=== PATIENT | male | born 1980 | race Hispanic/Latino ===

== ENCOUNTER 2020-04-27 10:28 | Observation (INO) | payer OTHER ==
[2020-04-27] MEDS ORDERED: ASPIRIN 325 MG TAB PO ONE (10:43)
--- NOTE | 2020-04-27 11:31 | XRay Report ---
CHEST 2 VIEWS INDICATION / CLINICAL INFORMATION: Chest Pain. COMPARISON: None available. FINDINGS: SUPPORT DEVICES: None. HEART / MEDIASTINUM: No significant abnormality. LUNGS / PLEURA: No significant pulmonary or pleural abnormality. No pneumothorax. ADDITIONAL FINDINGS: No significant additional findings. IMPRESSION: 1. No acute findings. Signer Name: Julius Mcnamara MD Signed: 04/27/2020 11:27 AM Workstation Name: [id number]
[2020-04-27] MEDS ORDERED: IPRATROPIUM/ALBUTEROL SULFATE 3 ML AMPUL.NEB IH ONE (11:49)
[2020-04-27 11:58] LABS: Basophils % (Auto) 0.3 % (0.0-1.8); Eosinophils # (Auto) 0.1 K/mm3 (0.0-0.4); Eosinophils % (Auto) 1.9 % (0.0-4.3); Hematocrit 38.1 % (35.5-45.6); Lymphocytes % (Auto) 20.2 % (13.4-35.0); Mean Corpuscular HGB Conc 34 % (32-34); Mean Corpuscular Volume 97 fl (84-94); Monocytes # (Auto) 0.4 K/mm3 (0.0-0.8); Platelet Count 145 K/mm3 (140-440); Red Blood Count 3.93 M/mm3 (3.65-5.03); Red Cell Distribution Width 14.1 % (13.2-15.2)
[2020-04-27 12:25] LABS: Creatine Kinase MB 3.4 ng/mL (0.0-4.0)
[2020-04-27 12:26] LABS: Alanine Aminotransferase 107 units/L (7-56); Albumin 3.8 g/dL (3.9-5); Blood Urea Nitrogen 7 mg/dL (9-20); Calcium 8.6 mg/dL (8.4-10.2); Hemolysis Index 10
[2020-04-27 12:28] LABS: BUN/Creatinine Ratio 10; Bilirubin,Direct < 0.2 mg/dL (0-0.2)
[2020-04-27 12:33] LABS: INR TNR (0.87-1.13); Partial Thromboplastin Time TNR Sec. (24.2-36.6)
[2020-04-27] MEDS ORDERED: ASPIRIN 325 MG TAB ONE (13:12)
[2020-04-27 13:53] LABS: INR 0.95 (0.87-1.13)
[2020-04-27 13:54] LABS: Partial Thromboplastin Time 27.7 Sec. (24.2-36.6)
--- NOTE | 2020-04-27 14:51 | Cat Scan Report ---
CT angio chest INDICATION / CLINICAL INFORMATION: chest pain elevated dimer. TECHNIQUE: Axial CT images were obtained after injection of 100 cc of Omnipaque 350 IV contrast using CTA protoc ol. 3 plane MIP / 3D reconstructions were produced. All CT scans at this location are performed using CT dose reduction for ALARA by means of automated exposure control. COMPARISON: None available. FINDINGS: Following the injection of intravenous contrast, a suboptimal bolus was obtained. No definite filling defects are seen in the main pulmonary arteries or their larger branches. No significant parenchymal abnormality is seen in the lungs. No enlarged mediastinal or hilar lymph nodes are identified. Diffu se fatty infiltration is present in the visualized portions of the liver. Degenerative changes seen i n the thoracic spine. IMPRESSION: 1. Suboptimal bolus without definite evidence of pulmonary embolus 2. Diffuse fatty infiltration in the visualized portions of the liver Signer Name: Lowell Puckett MD FACR Signed: 04/27/2020 2:46 PM Workstation Name: [id number]
--- NOTE | 2020-04-27 16:26 | Emergency Department Report ---
ED Chest Pain HPI - General Chief Complaint: Chest Pain Stated Complaint: SOB, CHEST PAIN Time Seen by Provider: 04/27/20 11:40 Source: patient Mode of arrival: Ambulatory Limitations: No Limitations - History of Present Illness Initial Comments: This is a 40-year-old male that complains of substernal chest pain which he states radiates to his back. He states he has had a dry cough for the past 1 week. He states that he went to his primary care doctor in [place] and was told that he was negative for Covid last . He complains of a dry cough. He admits that he smokes. He is using a Primatene inhaler. He has been wheezing. He denies fever and chills. He states he has had a slight alteration in sense of taste. He complains of myalgias of his upper body. MD Complaint: chest pain -: Gradual, week(s) Onset: during rest Pain Location: substernal Pain Radiation: back Severity: moderate Quality: sharp Consistency: intermittent Improves With: nothing Worsens With: nothing re: denies: nausea, vomting, diaphoresis, dyspnea Other Symptoms: cough. denies: fever, syncope Treatments Prior to Arrival: none - Related Data Home Medications Medication Instructions Recorded Confirmed Last Taken Omeprazole Magnesium [Prilosec Otc] 20 mg PO QDAY 08/13/13 07/07/14 07/07/14 lisinopriL [Zestril TAB] 20 mg PO QDAY 08/13/13 07/07/14 07/07/14 carvediloL [Coreg] 25 mg PO BID 07/07/14 07/07/14 07/07/14 Previous Rx's Medication Instructions Recorded Last Taken Type HYDROcodone/APAP 10-325 [[place] 1 each PO Q6HR PRN #15 tablet 10/13/13 Unknown Rx 10/325] Naproxen Sodium [Aleve] 220 mg PO Q8H PRN #50 tablet 12/19/13 Unknown Rx oxyCODONE /ACETAMINOPHEN [Percocet 1 tab PO Q6HR PRN #10 tablet 12/19/13 Unknown Rx 5/325 mg] traMADoL [Ultram 50 MG tab] 50 mg PO Q6HR PRN #20 tablet 07/07/14 Unknown Rx Allergies Allergy/AdvReac Type Severity Reaction Status Date / Time No Known Allergies Allergy Verified 10/13/13 13:16 Heart Score - HEART Score History: Moderately suspicious EKG: Non-specific Age: < 45 Risk factors: 1-2 risk factors Troponin: < normal limit HEART Score: 3 - Critical Actions Critical Actions: 0-3 pts:0.9-1.7%risk of adverse cardiac event.Candidate for discharge ED Review of Systems ROS: Stated complaint: SOB, CHEST PAIN Other details as noted in HPI Constitutional: denies: chills, fever Eyes: denies: eye pain, eye discharge, vision change ENT: denies: ear pain, throat pain Respiratory: cough. denies: shortness of breath, wheezing Cardiovascular: chest pain. denies: palpitations Endocrine: no symptoms reported Gastrointestinal: denies: abdominal pain, nausea, diarrhea Genitourinary: denies: urgency, dysuria Musculoskeletal: denies: back pain, joint swelling, arthralgia Skin: denies: rash, lesions Neurological: denies: headache, weakness, paresthesias Psychiatric: denies: anxiety, depression Hematological/Lymphatic: denies: easy bleeding, easy bruising ED Past Medical Hx - Past Medical History Hx Hypertension: Yes Hx Diabetes: Yes (borderline) Additional medical history: cardiac cath several years ago - Surgical History Additional Surgical History: Left inquinal hernia repar 2013 - Social History Smoking Status: Current Every Day Smoker - Medications Home Medications: Home Medications Medication Instructions Recorded Confirmed Last Taken Type Omeprazole Magnesium [Prilosec Otc] 20 mg PO QDAY 08/13/13 07/07/14 07/07/14 History lisinopriL [Zestril TAB] 20 mg PO QDAY 08/13/13 07/07/14 07/07/14 History HYDROcodone/APAP 10-325 [[place] 1 each PO Q6HR PRN #15 tablet 10/13/13 07/07/14 Unknown Rx 10/325] Naproxen Sodium [Aleve] 220 mg PO Q8H PRN #50 tablet 12/19/13 07/07/14 Unknown Rx oxyCODONE /ACETAMINOPHEN [Percocet 1 tab PO Q6HR PRN #10 tablet 12/19/13 07/07/14 Unknown Rx 5/325 mg] carvediloL [Coreg] 25 mg PO BID 07/07/14 07/07/14 07/07/14 History traMADoL [Ultram 50 MG tab] 50 mg PO Q6HR PRN #20 tablet 07/07/14 Unknown Rx ED Physical Exam - General Limitations: No Limitations General appearance: alert, in no apparent distress - Head Head exam: Present: atraumatic, normocephalic - Eye Eye exam: Present: normal appearance. Absent: scleral icterus - ENT ENT exam: Present: mucous membranes moist - Neck Neck exam: Present: normal inspection - Respiratory Respiratory exam: Present: normal lung sounds bilaterally. Absent: respiratory distress - Cardiovascular Cardiovascular Exam: Present: regular rate, normal rhythm. Absent: systolic murmur, diastolic murmur, rubs, gallop - GI/Abdominal GI/Abdominal exam: Present: soft, normal bowel sounds. Absent: distended, tenderness, guarding, rebound, rigid - Rectal Rectal exam: Present: deferred - Extremities Exam Extremities exam: Present: normal inspection - Back Exam Back exam: Present: normal inspection - Neurological Exam Neurological exam: Present: alert, oriented X3, CN II-XII intact. Absent: motor sensory deficit - Psychiatric Psychiatric exam: Present: normal affect, normal mood - Skin Skin exam: Present: warm, dry, intact, normal color. Absent: rash ED Course Vital Signs 04/27/20 04/27/20 04/27/20 10:32 10:42 11:51 Temperature 98.1 F Pulse Rate 110 H 102 H Pulse Rate [ Bilateral] Respiratory 2 L 20 29 H Rate Respiratory Rate [Bilateral ] Blood Pressure 182/98 206/108 O2 Sat by Pulse 96 96 Oximetry 04/27/20 04/27/20 04/27/20 12:00 12:01 12:16 Temperature Pulse Rate 96 H 108 H Pulse Rate [ 96 H Bilateral] Respiratory 14 15 Rate Respiratory 17 Rate [Bilateral ] Blood Pressure 206/108 195/87 O2 Sat by Pulse 100 99 Oximetry 04/27/2004/27/20 20 12:30 12:45 13:00 Temperature Pulse Rate 115 H 112 H 118 H Pulse Rate [ Bilateral] Respiratory 18 24 16 Rate Respiratory Rate [Bilateral ] Blood Pressure 187/93 199/94 199/94 O2 Sat by Pulse 95 93 95 Oximetry 04/27/2020 04/27/20 13:14 13:16 13:30 Temperature Pulse Rate 115 H 115 H 100 H Pulse Rate [ Bilateral] Respiratory 20 27 H Rate Respiratory Rate [Bilateral ] Blood Pressure 191/87 191/87 180/87 O2 Sat by Pulse 96 94 Oximetry 04/27/20 04/27/20 04/27/20 13:45 14:00 14:24 Temperature Pulse Rate 96 H 101 H 98 H Pulse Rate [ Bilateral] Respiratory 19 20 21 Rate Respiratory Rate [Bilateral ] Blood Pressure 176/83 176/83 202/94 O2 Sat by Pulse 95 95 Oximetry 04/27/20 04/27/20 04/27/20 14:30 14:46 15:00 Temperature Pulse Rate 94 H 96 H 95 H Pulse Rate [ Bilateral] Respiratory 27 H 24 12 Rate Respiratory Rate [Bilateral ] Blood Pressure 202/94 205/99 202/102 O2 Sat by Pulse 95 96 95 Oximetry 04/27/20 04/27/20 04/27/20 15:16 15:30 15:46 Temperature Pulse Rate 96 H 94 H 94 H Pulse Rate [ Bilateral] Respiratory 18 29 H 20 Rate Respiratory Rate [Bilateral ] Blood Pressure 216/101 221/110 195/97 O2 Sat by Pulse 97 94 98 Oximetry 04/27/20 16:00 Temperature Pulse Rate 93 H Pulse Rate [ Bilateral] Respiratory 20 Rate Respiratory Rate [Bilateral ] Blood Pressure 192/96 O2 Sat by Pulse 95 Oximetry - Reevaluation(s) Reevaluation #1: Discussed with Dr. Phillip. Admit hospitalist service. 04/27/20 16:25 BALJEET score - Baljeet Score Age > 65: (0) No Aspirin use within the Past 7 Days: (0) No 3 or more CAD Risk Factors: (0) No 2 or more Angina events in past 24 hrs: (0) No Known CAD with more than 50% Stenosis: (0) No Elevated Cardiac Markers: (0) No ST Deviation Greater than 0.5mm: (0) No BALJEET Score: 0 ED Medical Decision Making - Lab Data Result diagrams: 04/27/20 11:35 04/27/20 11:35 Laboratory Results - last 24 hr 04/27/20 04/27/20 04/27/20 11:35 11:35 11:47 WBC 5.1 RBC 3.93 Hgb 13.0 Hct 38.1 MCV 97 H MCH 33 H MCHC 34 RDW 14.1 Plt Count 145 Lymph % (Auto) 20.2 [place] % (Auto) 7.0 Eos % (Auto) 1.9 Baso % (Auto) 0.3 Lymph # (Auto) 1.0 L [place] # (Auto) 0.4 Eos # (Auto) 0.1 Baso # (Auto) 0.0 Seg Neutrophils % 70.6 H Seg Neutrophils # 3.6 PT TNR INR TNR APTT TNR D-Dimer TNR Sodium 138 Potassium 4.1 Chloride 101.2 Carbon Dioxide 22 Anion Gap 19 BUN 7 L Creatinine 0.7 L Estimated GFR > 60 BUN/Creatinine Ratio 10 Glucose 304 H Calcium 8.6 Total Bilirubin 0.20 Direct Bilirubin < 0.2 AST 68 H ALT 107 H Alkaline Phosphatase 113 Total Creatine Kinase 230 H CK-MB (CK-2) 3.4 CK-MB (CK-2) Rel Index 1.4 Troponin T 0.097 H NT-Pro-B Natriuret Pep 876.2 H Total Protein 6.3 Albumin 3.8 L Albumin/Globulin Ratio 1.5 04/27/20 04/27/20 13:22 13:22 WBC RBC Hgb Hct MCV MCH MCHC RDW Plt Count Lymph % (Auto) [place] % (Auto) Eos % (Auto) Baso % (Auto) Lymph # (Auto) [place] # (Auto) Eos # (Auto) Baso # (Auto) Seg Neutrophils % Seg Neutrophils # PT 12.9 INR 0.95 APTT 27.7 D-Dimer 334.60 H Sodium Potassium Chloride Carbon Dioxide Anion Gap BUN Creatinine Estimated GFR BUN/Creatinine Ratio Glucose Calcium Total Bilirubin Direct Bilirubin AST ALT Alkaline Phosphatase Total Creatine Kinase CK-MB (CK-2) CK-MB (CK-2) Rel Index Troponin T NT-Pro-B Natriuret Pep 954.4 H Total Protein Albumin Albumin/Globulin Ratio - EKG Data EKG shows normal: sinus rhythm, axis, intervals, QRS complexes, ST-T waves Rate: tachycardia - EKG Data Interpretation: nonspecific ST-T wave karthik - Radiology Data Radiology results: report reviewed (CT the chest no acute process) Critical care attestation.: If time is entered above; I have spent that time in minutes in the direct care of this critically ill patient, excluding procedure time. ED Disposition Clinical Impression: Malignant hypertension Chest pain Qualifiers: Chest pain type: unspecified Qualified Code(s): R07.9 - Chest pain, unspecified Disposition: DC-09 OP ADMIT IP TO THIS HOSP Is pt being admited?: Yes Does the pt Need Aspirin: Yes Condition: Stable Instructions: Hypertension (ED), Chest Pain (ED) Referrals: PRIMARY CARE, [Primary Care Provider] - 3-5 Days Time of Disposition: 16:25
[2020-04-27] MEDS ORDERED: MORPHINE 2 MG/1 ML INJ IV ONE (16:38)
[2020-04-27] MEDS ORDERED: ONDANSETRON 4 MG/2 ML INJ IV ONE (16:38)
[2020-04-27 17:42] LABS: Chol/HDL Ratio 3.05 %
[2020-04-27 18:47] VITALS: BP 180/145
== END 2020-04-27 19:00 | disposition left against medical advice (07) ==
LOC: ED 10:28 → 4A 16:26
PROVIDERS: ADMIT Internal Medicine; ATTEND Internal Medicine
DX: R07.89 Other chest pain (principal); I10 Essential (primary) hypertension; E11.9 Type 2 diabetes mellitus without complications; F17.200 Nicotine dependence, unspecified, uncomplicated; Z79.899 Other long term (current) drug therapy
CPT/HCPCS: 36415; 71046; 71275; 80048; 80061; 80076; 82550; 82553; 83880; 84484; 85025; 85379; 85610; 85730; 93005; 94640; 96374; 96375; 96376; 99285; G0378; J2270; J2405; Q9967; 94644